=== PATIENT | female | born 1995 | race Caucasian/White ===

== ENCOUNTER 2017-07-01 10:49 | Outpatient (CLI) | payer OTHER ==
[2017-07-01 11:15] VITALS: BP 132/59
[2017-07-01 12:19] LABS: BILIRUBIN,URINE NEGATIVE (NEGATIVE); GLUCOSE, URINE (UA) NEGATIVE (NEGATIVE); KETONES,URINE (UA) NEGATIVE (NEGATIVE); LEUKOCYTE ESTERASE, URINE NEGATIVE (NEGATIVE); NITRITE,URINE NEGATIVE (NEGATIVE); OCCULT BLOOD,URINE NEGATIVE (NEGATIVE); PROTEIN,URINE NEGATIVE (NEGATIVE); UROBILINOGEN,URINE 0.2 (NORMAL) E.U./dL (NORMAL)
[2017-07-01 12:20] LABS: CLARITY,URINE CLEAR (CLEAR)
== END 2017-07-01 11:45 | disposition home or self-care (01) ==
LOC: WFO 10:49 → FBP 10:52 → WFO 11:45
PROVIDERS: ATTEND Obstetrics & Gynecology
DX: Z34.02 Encounter for supervision of normal first pregnancy, second trimester (principal)
CPT/HCPCS: 81001; 81003; 87086; 99212

== ENCOUNTER 2017-08-19 16:09 | Outpatient (CLI) | payer OTHER | END 2017-08-19 16:10 | disposition home or self-care (01) | LOC: LAB.R 16:09 | PROVIDERS: ATTEND Registered Nurse | DX: Z34.83 Encounter for supervision of other normal pregnancy, third trimester (principal); Z11.3 Encounter for screening for infections with a predominantly sexual mode of transmission | CPT/HCPCS: 87491; 87591 ==

== ENCOUNTER 2017-08-22 17:04 | Outpatient (CLI) | payer OTHER ==
[2017-08-22 12:48] LABS: HGB - HEMOGLOBIN 9.8 g/dL (12.0-16.0); MEAN CORPUSCULAR HEMOGLOBIN 29.6 pg (27.0-31.0); MEAN CORPUSCULAR HGB CONC 33.5 g/dL (32.0-36.0); MEAN CORPUSCULAR VOLUME 88.5 fL (81.0-99.0); MEAN PLATELET VOLUME 7.8 fL (7.9-10.8); RED BLOOD COUNT 3.32 10^6/uL (4.20-5.40); WHITE BLOOD COUNT 12.1 x10^3/uL (4.8-10.8)
== END 2017-08-22 17:05 | disposition home or self-care (01) ==
LOC: LAB.N 17:04
PROVIDERS: ATTEND Registered Nurse
DX: Z34.83 Encounter for supervision of other normal pregnancy, third trimester (principal); Z11.3 Encounter for screening for infections with a predominantly sexual mode of transmission
CPT/HCPCS: 36415; 82950; 86850

== ENCOUNTER 2017-09-24 22:13 | Outpatient (CLI) | payer OTHER ==
[2017-09-24 22:33] LABS: BILIRUBIN,URINE NEGATIVE (NEGATIVE); CLARITY,URINE CLEAR (CLEAR); GLUCOSE, URINE (UA) NEGATIVE (NEGATIVE); KETONES,URINE (UA) NEGATIVE (NEGATIVE); LEUKOCYTE ESTERASE, URINE NEGATIVE (NEGATIVE); NITRITE,URINE NEGATIVE (NEGATIVE); OCCULT BLOOD,URINE NEGATIVE (NEGATIVE); PROTEIN,URINE NEGATIVE (NEGATIVE); UROBILINOGEN,URINE 0.2 (NORMAL) E.U./dL (NORMAL)
[2017-09-24 22:36] VITALS: BP 115/59
[2017-09-25] MEDS ORDERED: LACTATED RINGERS 1,000 ML IV SCH (00:45)
== END 2017-09-25 02:06 | disposition home or self-care (01) ==
LOC: WFO 22:13 → FBP 22:15 → WFO 09-25 02:06
PROVIDERS: ATTEND Obstetrics & Gynecology
DX: O47.03 False labor before 37 completed weeks of gestation, third trimester (principal); Z3A.33 33 weeks gestation of pregnancy
CPT/HCPCS: 81003; 82731; 99213; J7120; 81001; 87086

== ENCOUNTER 2017-10-18 08:00 | Outpatient (CLI) | payer OTHER | END 2017-10-18 08:01 | LOC: LAB.R 08:00 | PROVIDERS: ATTEND Registered Nurse | DX: Z34.83 Encounter for supervision of other normal pregnancy, third trimester (principal) | CPT/HCPCS: 87081 ==

== ENCOUNTER 2017-10-21 08:00 | Outpatient (CLI) | payer OTHER ==
[2017-10-21 14:14] LABS: HGB - HEMOGLOBIN 10.8 g/dL (12.0-16.0); MEAN CORPUSCULAR HEMOGLOBIN 29.5 pg (27.0-31.0); MEAN CORPUSCULAR HGB CONC 33.9 g/dL (32.0-36.0); MEAN CORPUSCULAR VOLUME 87.1 fL (81.0-99.0); MEAN PLATELET VOLUME 8.1 fL (7.9-10.8); RED BLOOD COUNT 3.66 10^6/uL (4.20-5.40); RED CELL DISTRIBUTION WIDTH 13.8 % (12.0-15.0); WHITE BLOOD COUNT 11.5 x10^3/uL (4.8-10.8)
== END 2017-10-21 08:01 | disposition home or self-care (01) ==
LOC: LAB.N 08:00
PROVIDERS: ATTEND Registered Nurse
DX: O99.013 Anemia complicating pregnancy, third trimester (principal)
CPT/HCPCS: 36415

== ENCOUNTER 2017-11-04 09:46 | Outpatient (CLI) | payer OTHER ==
[2017-11-04 10:39] LABS: TOTAL PROTEIN,URINE TIMED < 6 mg/dL
[2017-11-04 11:18] LABS: ALBUMIN/GLOBULIN RATIO 0.7 (1.0-2.2); BILIRUBIN,TOTAL 0.3 mg/dL (0.2-1.0); CALCIUM 9.3 mg/dL (8.5-10.3); CREATININE 0.7 mg/dL (0.4-1.0); TOTAL PROTEIN 7.1 g/dL (6.7-8.2); URIC ACID 4.8 mg/dL (2.6-7.2)
== END 2017-11-04 09:47 | disposition home or self-care (01) ==
LOC: LAB 09:46
PROVIDERS: ATTEND Nurse Practitioner Obstetrics & Gynecology
DX: O13.3 Gestational [pregnancy-induced] hypertension without significant proteinuria, third trimester (principal)
CPT/HCPCS: 36415; 80053; 82570; 84156; 84550

== ENCOUNTER 2017-11-15 20:00 | Inpatient (IN) | payer OTHER ==
[~2017-11-15 20:00] MED LIST: DINOPROSTONE 10 MG SUPP VG ONE; SODIUM CHLORIDE FLUSH 0.9% 10 ML SYRINGE IVP PRN
[2017-11-15] MEDS ORDERED: ONDANSETRON 4 MG/2 ML VIAL IVP PRN (20:23)
[2017-11-15] MEDS ORDERED: fentaNYL 100 MCG/2 ML VIAL IVP PRN (20:23)
--- NOTE | 2017-11-15 20:28 | HISTORY & PHYSICAL EXAMINATION ---
Admit History - Instructions [place]/Slash: -Left hand click circles element as positive or present. -Right hand click slashes element as negative or not present. - Visit Reason Visit Reason: Other (preinduction cervical ripening) - : 1 Parity: 0 Premature: 0 Ectopic: 0 : 0 Care: positive: [facility], [facility] Complications This : positive: induced HTN Smoking Status: Never smoker - Mother's Labs GBS: positive: Group B Step Negative Rubella Status: positive: Immune Meds/Allgy - Allergies Allergies/Adverse Reactions: Allergies Allergy/AdvReac Type Severity Reaction Status Date / Time No Known Drug Allergies Allergy Verified 09/24/17 22:54 Review of Systems - Constitutional Constitutional: reports: Fatigue. denies: Fever, Chills - Eyes Eyes: denies: Blurred vision, Spots in vision, Field loss, Vision loss, Dipolpia - Ears, Nose & Throat Ears, Nose & Throat: denies: Vertigo - Cardiovascular Cariovascular: reports: Edema. denies: Irregular heart rate, Palpitations, Chest pain - Respiratory Respiratory: denies: Cough, Sputum production, Wheezing, Snoring, SOB at rest, SOB with exertion - Gastrointestinal Gastrointestinal: denies: Abdominal pain, Constipation, Diarrhea - Musculoskeletal Musculoskeletal: denies: Back pain - Integumentary Integumentary: denies: Rash, Pruritis, Lesions - Neurological Neurological: denies: General weakness, Focal weakness, Headache, Dizziness - Psychiatric Psychiatric: denies: Depression, Anxiety - All Other Systems All Other Systems: reports: Reviewed and negative (occ uterine contractions, no LOF, some bloody show, +FM) Physical - Abdominal Exam Vital Signs: Temp Pulse Resp BP Pulse Ox 36.6 C 92 20 133/74 H 100 11/15/17 20:22 11/15/17 20:22 11/15/17 20:22 11/15/17 20:22 11/15/17 20:22 Contraction Frequency (min/apart): erratic Contraction Intensity: positive: Mild to moderate Uterine Resting Tone: positive: Soft - Monitoring Heart Rate Baseline: 145 Strip Review: positive: Category I - Presentation Presentation: positive: Vertex - Vaginal Exam Membranes: positive: Membranes intact Dilation (in cm): 2 Effacement (%): 75 Station: positive: -1 Cervical Position: positive: Midposition - Speculum Exam Speculum Exam Performed: positive: No Findings: negative: Gross leak - Other Notes Labor Progress Note/Additional Text: Gilda Go is a 22 y/o @ 40w2d by first trimester US who presents for preinduction cervical ripening secondary to gestational HTN w/o evidence of PET. She presented to the clinic today w/ persistently elevated BPs in the 140s /90s. We discussed options for management & the recommendation for induction of labor as well as rationale. We reviewed risks/benefits/alternatives, full PARQ was held & informed consent obtained. She will undergo prostaglandin preinduction cervical ripening prior to initiation of IOL. We reviewed options for preinduction cervical ripening & she elected overnight dinoprostone. Her has been complicated only by an episode of threatened labor in the early third trimester, which did not progress. Her labs are all WNL & she screened negative for GBS. Her is presently deployed. PMH: unremarkable Psurgh: none GYNhx: denies STI hx, no abnormal pap OBhx: primiparous Famhx: non-contributory Sochx: unemployed, to Neal, denies DV; Neal is presently stationed in [facility] ; her parents are present for support; denies ETOH/tobacco/drugs PE: GEN: AAox3, NAD WA gravid female HEENT: grossly normocephalic, atraumatic LUNGS: CTA b/l t/o HEART: RRR nls1s2, no murmur GI: Abd gravid, NT; lie longitudinal, presentation cephalic, EFW 7- 7.5# : No lesion, some vaginal bloody show OB: EFM: BL 145bpm, + accels, no decels, mod angela MS: +3 pitting edema to the inferior thigh B/L, FROM, no erythema, no deformity NEURO: +3 DTRs, no clonus; no focal deficit SKIN: C/D/I; warm, well-perfused, no lesion PSYCH: Normal mood & affect, pleasantly conversant Plan for Labor - Plan For Labor I expect patient to be DC'd or transferred within 96 hours.: Yes Plan for Labor: 1. Admit to obs for cervical ripening 2. dinoprostone 10mg insert PV 3. PET labs w/ admit labs 4. analgesia/anesthesia PRN pt request 5. hydroxyzine 50mg IM x1 PRN insomnia 6. Careful BP monitoring w/ antihypertensive therapy for severe-range BPs 7. Reassess cervical status x12 hours, earlier PRN 8. Reviewed plan of care w/ pt & RN @ bedside; Reviewed clinical scenario w/ Dr. Jazmin MD, back-up [employer]INCIPAL; all in agreement, without concerns.
[2017-11-15 21:26] LABS: BASOPHILS % (AUTO) 0.1 %; EOSINOPHILS # (AUTO) 0.1 10^3/uL (0.0-0.7); EOSINOPHILS % (AUTO) 0.5 %; HGB - HEMOGLOBIN 10.3 g/dL (12.0-16.0); LYMPHOCYTES # (AUTO) 1.7 10^3/uL (1.5-3.5); LYMPHOCYTES % (AUTO) 12.2 %; MEAN CORPUSCULAR HGB CONC 33.4 g/dL (32.0-36.0); MEAN CORPUSCULAR VOLUME 86.9 fL (81.0-99.0); MEAN PLATELET VOLUME 8.5 fL (7.9-10.8); MONOCYTES # (AUTO) 0.8 10^3/uL (0.0-1.0); MONOCYTES % (AUTO) 5.9 %; NEUTROPHILS # (AUTO) 11.3 10^3/uL (1.5-6.6); NEUTROPHILS % (AUTO) 81.3 %; PLT - PLATELET COUNT 232 10^3/uL (130-450); RED BLOOD COUNT 3.56 10^6/uL (4.20-5.40); RED CELL DISTRIBUTION WIDTH 14.2 % (12.0-15.0); WHITE BLOOD COUNT 13.9 x10^3/uL (4.8-10.8)
[2017-11-15 21:57] LABS: ALBUMIN 2.7 g/dL (3.2-5.5); ALBUMIN/GLOBULIN RATIO 0.8 (1.0-2.2); BILIRUBIN,TOTAL 0.5 mg/dL (0.2-1.0); CALCIUM 8.6 mg/dL (8.5-10.3); CREATININE 0.7 mg/dL (0.4-1.0); TOTAL PROTEIN 6.3 g/dL (6.7-8.2)
--- NOTE | 2017-11-16 11:27 | PROVIDER PROGRESS NOTE ---
Labor Progress Note - Uterine Monitoring Uterine Monitoring Mode: positive: External toco Contraction Frequency (min/apart): 4-6 Contraction Intensity: positive: Mild to moderate Uterine Resting Tone: positive: Soft - Monitoring Monitor Mode: positive: External ultrasound Heart Rate Baseline: 130 Heart Rate Variability: positive: Moderate (6-25 bmp) Accelerations: positive: Present, 15x15 Decelerations: positive: None Strip Review: positive: Category I - Vaginal Exam Dilation (in cm): 2 Effacement (%): 70 Station: -1 (per RN) Cervical Position: Midposition - Labor Progress Note Labor Progress Note/Additional Text: S: Gilda is 12 hours s/p dinoprostone insertion. She is comfortable & without complaint. She is presently normotensive. She would like to utilize RazorGator tub & ambulate some today. She denies WATT/vision changes/abd pain. O: VSS: BP 126/72 EFM: BL 130bpm, + accels, no decels, mod angela TOCO: UCs q 4-6 min x60 seconds, palp mod SVE:Per Rn evaluation, no cervical change s/p PGE1 insert. A: 22 y/o @ 40w3d by early first trimester US IOL for gHTN/progressive edema, presently normotensive w/o s/sx PET, no severe- range BPs GBS neg, IBOW FHTs cat I Preinduction cervical ripening, no cervical change w/ PGE1 placement x12 hours; Beverly's score: 6 Adequate pain control w/o analgesia/anesthesia P: 1. Buccal misoprostol 50mcg q 4 hrs. 2. Ongoing careful monitoring of BP & s/sx PET w/ intervention as clinically warranted. 3. Reassess cervical status x4 hours, earlier PRN 4. Begin Pitocin infusion once cervix favorable 5. Analgesia/anesthesia PRN per pt request
[2017-11-16] MEDS: SODIUM CHLORIDE FLUSH 0.9% 10 ML SYRINGE IVP SCH (12:20)
[2017-11-16] MEDS: miSOPROStol 100 MCG TABLET BC SCH ×3 (12:31→20:35)
[2017-11-16] MEDS: LACTATED RINGERS 1,000 ML IV SCH (18:16)
[2017-11-17] MEDS: SODIUM CHLORIDE FLUSH 0.9% 10 ML SYRINGE IVP SCH (00:31)
[2017-11-17] MEDS: LACTATED RINGERS 1,000 ML IV SCH ×2 (01:15→06:50)
[2017-11-17] MEDS ORDERED: fent/BUPIV 2 MCG/0.125% 250 ML EP ONE (01:38)
[2017-11-17] MEDS ORDERED: ePHEDrine 50 MG/ML VIAL IVP PRN (02:44)
[2017-11-17] MEDS ORDERED: fent/BUPIV 2 MCG/0.125% 250 ML EP PRN (02:44)
[2017-11-17] MEDS ORDERED: ONDANSETRON 4 MG/2 ML VIAL IVP PRN (02:44)
[2017-11-17] MEDS ORDERED: LACTATED RINGERS 500 ML IV ONE (02:44)
[2017-11-17] MEDS ORDERED: METOCLOPRAMIDE 10 MG/2 ML VIAL IVP PRN (02:44)
[2017-11-17] MEDS ORDERED: diphenhydrAMINE INJ 50 MG/ML VIAL IVP PRN (02:44)
[2017-11-17] MEDS ORDERED: NALBUPHINE 10 MG/ML AMP IVP PRN (02:44)
[2017-11-17] MEDS ORDERED: NALOXONE 0.4 MG/ML VIAL IVP PRN (02:44)
[2017-11-17] MEDS ORDERED: OXYTOCIN/SODIUM CHLORIDE 500 ML IV SCH (06:42)
[2017-11-17] MEDS ORDERED: OXYTOCIN/SODIUM CHLORIDE 500 ML IV ONE (06:55)
--- NOTE | 2017-11-17 09:26 | PROVIDER PROGRESS NOTE ---
Labor Progress Note - Uterine Monitoring Uterine Monitoring Mode: positive: External toco Contraction Frequency (min/apart): 2-4 Contraction Intensity: positive: Moderate Uterine Resting Tone: positive: Soft - Monitoring Monitor Mode: positive: External ultrasound Heart Rate Baseline: 125 Heart Rate Variability: positive: Moderate (6-25 bmp) Accelerations: positive: Present, 15x15 Decelerations: positive: Variable (non-repetitive to yojana in 110s w/ spontaneous return to baseline <60 seconds) Strip Review: positive: Category II - Vaginal Exam Dilation (in cm): 5 Effacement (%): 80 Station: -1 Cervical Position: Anterior (soft) - Labor Progress Note Labor Progress Note/Additional Text: S: Gilda is comfortable w/ her epidural in place. Her parents & their foster children are present @ the bedside & are supportive. She has been intermittently videochatting w/ Neal. O: VSS: BP: 130/80 EFM: BL 125bpm, + accels, occ angela decels to yojana in 110s w/ spontaneous return to baseline <60 seconds, mod angela TOCO: UCs q2-4 min x60 seconds w/ 3mU/min Pitocin infusing SVE: 5/80/-1 BBOW AROM for thick MSAF A: 22 y/o @ 40w4d, induction of labor for GHTN w/o s/sx PET Normotensive @ present, no severe-range BPs, no neuro s/sx FHTs cat II, overall reassuring MSAF s/p effective prostaglandin cervical ripening over a period of ~36 hours; cervix now favorable Adequate pain control w/ epidural anesthesia P: 1. Continue to titrate Pitocin infusion per protocol to maintain adequate labor pattern by tocometry 2. Reassess cervical status x4 hours, earlier PRN 3. Plan peds attendance @ delivery 4. Reviewed optimal maternal positioning to facilitate rotation & descent 5. Reviewed plan of care w/ pt, family & RN @ bedside; all in agreement, without concerns 6. Repeat PET labs
[2017-11-17 10:04] LABS: HGB - HEMOGLOBIN 10.8 g/dL (12.0-16.0); MEAN CORPUSCULAR HEMOGLOBIN 29.3 pg (27.0-31.0); MEAN CORPUSCULAR HGB CONC 33.7 g/dL (32.0-36.0); MEAN CORPUSCULAR VOLUME 86.9 fL (81.0-99.0); MEAN PLATELET VOLUME 8.2 fL (7.9-10.8); RED BLOOD COUNT 3.67 10^6/uL (4.20-5.40); RED CELL DISTRIBUTION WIDTH 14.4 % (12.0-15.0); WHITE BLOOD COUNT 12.2 x10^3/uL (4.8-10.8)
[2017-11-17 10:22] LABS: ALBUMIN 2.6 g/dL (3.2-5.5); ALBUMIN/GLOBULIN RATIO 0.7 (1.0-2.2); BILIRUBIN,TOTAL 0.5 mg/dL (0.2-1.0); CALCIUM 8.7 mg/dL (8.5-10.3); CREATININE 0.8 mg/dL (0.4-1.0); TOTAL PROTEIN 6.4 g/dL (6.7-8.2)
--- NOTE | 2017-11-17 13:11 | PROVIDER PROGRESS NOTE ---
Labor Progress Note - Uterine Monitoring Uterine Monitoring Mode: positive: External toco : 2-4 Contraction Intensity: positive: Moderate to strong Uterine Resting Tone: positive: Soft - Monitoring Monitor Mode: positive: External ultrasound Heart Rate Baseline: 130 Heart Rate Variability: positive: Moderate (6-25 bmp) Accelerations: positive: Present, 15x15 Decelerations: positive: Variable (to yojana in 110s w/ spontaneous return to baseline <60 seconds, non-repetitive) Strip Review: positive: Category II - Vaginal Exam Dilation (in cm): 10 Effacement (%): 100 Station: 1 - Labor Progress Note Labor Progress Note/Additional Text: S: Gilda reports sensation of constant pressure, worse during contractions, has the urge to push. Family @ bedside, supportive. O: VSS: T 36.9, BP: 115/65 EFM: BL 130bpm, + accels, occ angela decels to yojana in 110s w/ spontaneous return to baseline <60 seconds; mod angela TOCO: UCs q 2-4 min w/ 3mU/min Pitocin infusing SVE: /1, ongoing leakage of MSAF A: 22 y/o @ 40w4d, IOL for GHTN w/o s/sx PET GBS negative, afebrile AROM x4 hours for thick MSAF FHTs cat II, overall reassuring Adequate pain control w/ epidural anesthesia Progressive cervical change w/ titration of Pitocin s/p effective prostaglandin cervical ripening, now 2nd stage labor P: 1. Begin pushing 2. Peds to attend delivery secondary to thick MSAF 3. Reviewed anticipatory guidance re: 2nd/3rd stage labor, plan [facility]
[2017-11-17] MEDS ORDERED: LIDOCAINE 1% 50 ML MDV ONE (13:19)
--- NOTE | 2017-11-17 14:02 | DELIVERY NOTE ---
Delivery Note - Labor Labor: positive: Augmented by ARM, Induced by oxytocin - Delivery Method Infant Delivery Method: positive: Spontaneous vaginal delivery - Presentation Presentation: positive: Compound (L hand), SULEMA - left occiput anterior - Nuchal Cord Nuchal Cord: positive: Present (tight x1, baby somersaulted through s/p delivery of shoulders/body) - Anesthetic Anesthetic Type: - Amniotic Fluid Description Amniotic Fluid Description: positive: Thick meconium - Episiotomy Type Episiotomy Type: positive: None - Laceration Laceration: positive: Vaginal (1st degree, shallow) - Suture Suture Type: positive: Vicryl Suture Size: positive: 3-0 - Delivery Outcome Delivery Outcome: positive: Livebirth - [place]: positive: Placed in direct skin contact with mother, Suctioned, Bulb syringe, Stimulated, [place] used, Warmer used sex: positive: Female - Cord Cord: positive: 3 vessels - Placenta Placenta: positive: Intact, Spontaneous, Meconium stained - Estimated Blood Loss Estimated Blood Loss (in cc): 200 - Post Delivery Events Post Delivery Events: positive: No post delivery events - Delivery Comments (Free Text/Narrative) Delivery Comments (Free Text/Narrative): VALERIE CORONA IS A 22 Y/O WHO UNDERWENT PREINDUCTION CERVICAL RIPENING W/ DINOPROSTONE & MISOPROSTOL SECONDARY TO GHTN W/O S/SX PET; SHE HAD NO SEVERE- RANGE BPS DURING THE COURSE OF HER CERVICAL RIPENING. SHE RECEIVED AN EPIDURAL FOR ANESTHESIA & THEN UNDERWENT PITOCIN INFUSION TO A MAXIMUM INFUSION RATE OF 4MU/MIN TITRATED OVER A PERIOD OF 6 HOURS. SHE UNDERWENT AROM FOR THICK MSAF & PROGRESSED STEADILY TO COMPLETE DILATATION W/ AN URGE TO PUSH @ 1308, FOR A TOTAL FIRST STAGE DURATION OF 4 HOURS, 8 MINUTES. FHTS MONITORED EXTERNALLY ELECTRONICALLY T/O FIRST STAGE & CAT I-II, CONSISTENTLY REASSURING. PT PUSHED W / DIRECTION & SPONTANEOUS URGE TO EFFECT OF VIABLE FEMALE IN SULEMA POSITION W / COMPOUND L HAND OVER AN INTACT PERINEUM @ 1336, FOR A TOTAL 2ND STAGE DURATION OF 28 MINUTES W/ 19 MINUTES OF ACTIVE EXPULSIVE EFFORT; TIGHT NUCHAL X1 NOT REDUCIBLE; INFANT SOMERSAULTED THROUGH CORD S/P DELIVERY OF SHOULDERS/ BODY. INITIALLY STUNNED, LIMP, MECONIUM-STAINED. PLACED TO MATERNAL ABD FOR DRYING, THEN CORD CLAMPED X2 & CUT BY CNM W/IN SECONDS OF DELIVERY & INFANT TO WARMER TO WAITING NEURODIAGNOSTIC TECHNICIAN. APGARS 7/7/9. ACTIVE MANAGEMENT OF THIRD STAGE OF LABOR W/ PITOCIN IN IV FLUIDS; PLACENTA DELIVERED SPONTANEOUSLY & INTACT, ACUNA, VERY MECONIUM-STAINED, @ 1339, FOR A TOTAL 3RD STAGE DURATION OF 3 MINUTES. FF @ U. VAGINA & PERINEUM INSPECTED & SHALLOW VAGINAL LACERATION NOTED; REPAIRED UNDER EPIDURAL ANESTHESIA W/ 3-0 VICRYL. HEMOSTATIC. EBL 200ML. MOTHER & INFANT PRESENTLY STABLE. PLANS TO BREASTFEED. WEIGHT & CORD GAS RESULTS PENDING.
[2017-11-17] MEDS ORDERED: HYDROCORTISONE/PRAMOXINE 10 GM PR PRN (16:25)
[2017-11-17] MEDS ORDERED: OXYTOCIN/SODIUM CHLORIDE 250 ML IV ONE (16:25)
[2017-11-17] MEDS ORDERED: LACTATED RINGERS 1,000 ML IV SCH (17:00)
[2017-11-17] MEDS: ACETAMINOPHEN 500 MG TABLET PO SCH (19:05)
[2017-11-17] MEDS: IBUPROFEN 800 MG TABLET PO SCH (19:05)
--- NOTE | 2017-11-17 21:06 | ANESTHESIA POST OP EVALUATION ---
Anesthesia Post Eval - Post Anesthesia Eval CV Function Including HR & BP: positive: Stable Pain Control: positive: Adequate Nausea & Vomiting: positive: Negative Mental Status: positive: Appropriate Anesthesia Complications: positive: None (Patient recieved labor epidural, uneventful. I explained to notify us if she developed a spinal headache or any other neurologic problems. I also told he that she may have some low back discomfort that may persist for a week or two following epidural. Overall she was satisfied with her epidural and pain management. Thank you, Paris
[2017-11-17] MEDS: DOCUSATE SODIUM 100 MG CAPSULE PO SCH (21:30)
[2017-11-18] MEDS: IBUPROFEN 800 MG TABLET PO SCH ×4 (00:58→19:45)
[2017-11-18] MEDS: ACETAMINOPHEN 500 MG TABLET PO SCH ×3 (02:55→19:44)
--- NOTE | 2017-11-18 08:35 | PROVIDER PROGRESS NOTE ---
Subjective - Subjective Subjective: S: Bonding well with baby. without difficulty. Pain well controlled with Ibuprofen and Tylenol. Bleeding decreasing and is without clots. Reports some back discomfort at epidural site. Perineum sore but manageable. O: Hgb 10.3-->10.8; PLT 232-->203; AST 25 -->20; ALT 15 -->13; LDH 128 BP 119/61, T 36.6, HR 61, O2 98 Heart RRR w/o M/G/R, lungs CTAB, abdomen soft and nontender with fundus firm at U. Light lochia rubra. Perineum intact with mild edema. Bilateral LE's 2+ edema - improved. A: 22yo -->P1 s/p TSVD of viable female GHTN - normotensive P: Continue routine pp care and medications. Plan discharge home tomorrow. Objective - Vital Signs/Intake & Output Vital Signs: Vital Signs x48h Temp Pulse Resp BP Pulse Ox 11/18/17 04:45 36.6 C 61 16 119/61 98 Intake & Output: Intake & Output 11/15/17 11/16/17 11/17/17 11/18/17 23:59 23:59 23:59 23:59 Intake Total 1999 1243.101 Output Total 1000 1800 Balance 1000 -556.899 - Lab Results Fish Bones: 11/17/17 10:00 11/17/17 10:00 Other Labs: Lab Results x24hrs 11/17/17 11/17/17 Range/Units 10:00 10:00 WBC 12.2 H (4.8-10.8) x10^3/uL RBC 3.67 L (4.20-5.40) 10^6/uL Hgb 10.8 L (12.0-16.0) g/dL Hct 31.9 L (37.0-47.0) % MCV 86.9 (81.0-99.0) fL MCH 29.3 (27.0-31.0) pg MCHC 33.7 (32.0-36.0) g/dL RDW 14.4 (12.0-15.0) % Plt Count 203 (130-450) 10^3/uL MPV 8.2 (7.9-10.8) fL Sodium 135 (135-145) mmol/L Potassium 4.0 (3.5-5.0) mmol/L Chloride 107 (101-111) mmol/L Carbon Dioxide 22 (21-32) mmol/L Anion Gap 6.0 (6-13) BUN 15 (6-20) mg/dL Creatinine 0.8 (0.4-1.0) mg/dL Estimated GFR (MDRD) 90 (>89) Glucose 88 (70-100) mg/dL Calcium 8.7 (8.5-10.3) mg/dL Total Bilirubin 0.5 (0.2-1.0) mg/dL AST 20 (10-42) IU/L ALT 13 (10-60) IU/L Alkaline Phosphatase 111 (42-121) IU/L Total Protein 6.4 L (6.7-8.2) g/dL Albumin 2.6 L (3.2-5.5) g/dL Globulin 3.8 (2.1-4.2) g/dL Albumin/Globulin Ratio 0.7 L (1.0-2.2)
[2017-11-18] MEDS ORDERED: WITCH HAZEL/GLYCERIN 1 EACH MED..PAD TOP PRN (08:36)
[2017-11-18] MEDS: DOCUSATE SODIUM 100 MG CAPSULE PO SCH ×2 (10:54→21:23)
[2017-11-19] MEDS: IBUPROFEN 800 MG TABLET PO SCH ×3 (01:47→14:29)
[2017-11-19] MEDS: ACETAMINOPHEN 500 MG TABLET PO SCH ×2 (03:47→11:49)
[2017-11-19] MEDS: DOCUSATE SODIUM 100 MG CAPSULE PO SCH (08:04)
[2017-11-19 08:13] VITALS: BP 120/73
--- NOTE | 2017-11-19 10:31 | Discharge Plan ---
Discharge Plan Disposition: 01 Home, Self Care Condition: Good Diet: Regular Activity Restrictions: No Restrictions Shower Restrictions: No Driving Restrictions: No Weight Bearing: Full Weight No Smoking: If you smoke, Please STOP! Call for help. Follow-up with: Eneida Owusu CNM, ARNP [Provider Admit Priv/Credential] -
--- NOTE | 2017-11-19 10:37 | PROVIDER PROGRESS NOTE ---
Subjective - Subjective Subjective: Final Progress Note S: Bonding well with baby. without difficulty. Pain well controlled with ibuprofen and tylenol. Perineum comfortable. Back pain decreased with use of K-pad overnight. Bleeding decreased and is light. O: BP 120/73, T 36.6, HR55, RR 14 Heart RRR w/o M/G/R, lungs CTAB. Abdomen soft and nontender with fundus firm at U-1. Bilateral LE's 1+ edema. Light lochia rubra. Perineum intact. A: 22yo -->P1 PPD#2, s/p TSVD of viable female GHTN - normotensive, labs WNL P: Discharge home today. Reviewed self care and warning signs. Will have 1 week visit with myself at [facility]. She is planning to leave to go back to [place] with her parents in 1 week and will be gone for a least 6 weeks. She plans to f/u with myself at [facility] when she returns from [place]. Denies contraception. Advised OTC PO Ibuprofen 600mg PO q 6 hours PRN pain; 100mg Colace PO q 4 hours PRN constipation; Continuation of PNV while . Pt verbalized understanding and agrees to above plan. She denies further questions or concerns today. Objective - Vital Signs/Intake & Output Vital Signs: Vital Signs x48h Temp Pulse Resp BP Pulse Ox 11/19/17 08:10 36.6 C 55 L 14 120/73 99 11/19/17 04:21 36.5 C 63 16 125/77 100 Intake & Output: Intake & Output 11/16/17 11/17/17 11/18/17 11/19/17 23:59 23:59 23:59 23:59 Intake Total 1999 1243.101 250 Output Total 1000 1800 1 Balance 1000 -556.899 249 - Lab Results Fish Bones: 11/17/17 10:00 11/17/17 10:00
--- NOTE | 2017-11-19 18:24 | Labor Flowsheet ---
Labor Flowsheet Datetime Report Generated by CPN: 11/19/2017 18:24 Datetime: 11/19/2017 14:56 VITAL SIGNS NBP Sys/Evelina/Mean (mmHg): 121 : 75 : 86 Pulse: 65 LaborFlag: Labor Datetime: 11/17/2017 20:14 SpO2 (%): 99 Datetime: 11/17/2017 13:35 UTERINE ACTIVITY Monitor Mode: External Frequency (min): 2 Quality: Strong Duration (sec): 40-60 Pattern: Normal: <= 5 Contractions in 10 Minutes Resting Tone (Palpate): Relaxed FHR Baseline Rate : 125 Variability: Minimal - Undetectable to <=5 bpm Comments: mother switched to efm form telemetry, FHR 125 up to pushing. fhr during pushing FHT 60s- 130s. right before delivery FHT remaind in the 60s. 1336 Oxygen Amount (LPM): 10 Oxygen Method: Non-Rebreather STAGE 2 Pushing: Urge to Push Pushing Position: Pushing with Contractions Pushing Progress: Descent with Pushing Stage 2 Comments: 1316 started pushing Datetime: 11/17/2017 13:14 Stage of : Labor ASSESSMENT A Monitor Mode: Telemetry Accelerations: None Provider Reviewed Strip: Yes Strip Reviewed by: emeka kenny COMMUNICATION Communication: Provider at Bedside Notification Reason: Labor Status; Pain Communication Comments: emeka at bedside. anterior lip. RT and peds notified for attendence of bi rth Datetime: 11/17/2017 13:03 VAGINAL EXAM Dilatation (cm): 9.5 Effacement (%): 100 Station: 2 Exam by: emeka kenny cnm Datetime: 11/17/2017 12:59 Contraction Comments: pt feeling strong urge to push. FHR Baseline Changes: No Baseline Change Decelerations: None Category: Category II Datetime: 11/17/2017 12:32 Epidural Procedure Other: Single Dose Datetime: 11/17/2017 12:29 Anesthesia Comments: 5cc bolus given for increased presure Datetime: 11/17/2017 12:18 Vaginal Bleeding: Normal Show Cervix, Consistency: Soft Cervix, Position: Anterior PATIENT CARE IV/Blood Work: IV Infusing per Order Datetime: 11/17/2017 12:10 Temperature (C): 36.9 Datetime: 11/17/2017 12:01 Actions for Decelerations: IV Bolus Patient Position/Activity: Left Extreme Datetime: 11/17/2017 11:49 Patient Care Comments: juice given Datetime: 11/17/2017 11:02 Respirations: 15 Vaginal Exam Comments: pt feeling pressure in between ctx Datetime: 11/17/2017 10:17 MEDICATIONS Pitocin (milliunits): Increased to @ 4 Datetime: 11/17/2017 10:01 PAIN Pain Scale: 0 Pain Assessment Comments: some perineum pressure Hygiene: Martina Care; Peripad Changed Datetime: 11/17/2017 09:12 Membrane Status: Ruptured Membranes Rupture Method: Artificial Amniotic Fluid Color: Heavy Meconium Amniotic Fluid Amount: Moderate Datetime: 11/17/2017 08:15 Pitocin Checklist: No More than 5 Uterine Contractions in 10 Minutes for any 20 Minute Interval Datetime: 11/17/2017 07:00 Anesthesia Level Check: T9 Datetime: 11/17/2017 06:53 I/O Interventions: Mckay Cath Inserted Datetime: 11/17/2017 06:42 Provider Notified (Name): M Milagrosa, CNM, SCHOOL SUPERVISOR Datetime: 11/17/2017 03:16 Monitor Interventions for FHR: Ultrasound Adjusted Datetime: 11/17/2017 03:07 Monitor Interventions for UA: [place] Adjusted Datetime: 11/17/2017 02:10 Epidural Procedure: Completed Datetime: 11/17/2017 01:34 PROCEDURE TIME OUT Procedure Verify: Correct Patient Identity; Correct Side and Site are Marked; Accurate Procedure Co nsent Form; Agreement on Procedure to be Done; Correct Patient Position ANESTHESIA Anesthesia Plans: Epidural Epidural Positioning: Sitting Datetime: 11/16/2017 22:58 Pain Presence: Intermittent Pain Type: Cramping; Dull Pain Location: Abdomen; Back Pain Relief Measures: Comfort Measures Pain Coping: Breathing Through Contractions Comfort Measures: Breathing/Relaxation; Back Rub Given; Family Support; Aromatherapy Datetime: 11/16/2017 20:35 Cervical Ripening Agents: Cytotec @ 50 Datetime: 11/16/2017 19:36 MATERNAL ASSESSMENT Level of Consciousness: Fully Conscious DTR's/Clonus: DTRs 2+; No Clonus Headache: Denies Breath Sounds, Left: Clear and Equal Breath Sounds, Right: Clear and Equal Nausea/Vomiting: Denies RUQ Epigastric Pain: Denies Datetime: 11/15/2017 21:39 Temperature Route: Oral Datetime: 11/15/2017 21:30 Medication Comments: Cervidil placed
--- NOTE | 2017-12-01 11:42 | DISCHARGE SUMMARY ---
Physician: YANET Adams DATE OF ADMISSION: 11/17/2017 DATE OF DISCHARGE: 11/19/2017 DIAGNOSES ON ADMISSION 1. A 22-year-old G1, P0 at 40 weeks 2 days intrauterine . 2. Preinduction cervical ripening secondary to gestational hypertension without evidence of preeclampsia. 3. Gestational hypertension without preeclampsia. DIAGNOSES ON DISCHARGE 1. A 22-year-old G1, P1, status post spontaneous vaginal delivery on 11/17/2017. 2. Normal recovery. BRIEF HISTORY: She is a patient of [facility] who presented on 11/15/2017 for preinduction cervical ripening. The patient was noted to have persistently elevated blood pressures in the 140s/90s. She received overnight Cervidil. She then continued preinduction cervical ripening with misoprostol. She had no severe range blood pressures during the course of her cervical ripening. She received an epidural for anesthesia and then underwent Pitocin infusion for induction of labor. She spontaneously delivered a viable female infant. Apgars were 7, 7, and 9 at 1, 5 and 10 minutes respectively. EBL 200 mL. Patient was noted to have a shallow vaginal laceration, which was repaired with a 3-0 Vicryl in the usual fashion under sterile conditions. She has been doing well in her course. She is ambulating and tolerating a regular diet. She is urinating without difficulty and her lochia is normal. Her pain is well controlled with oral medications. She will be discharged home today on postoperative day 2. She intends to followup with myself at [facility] in 1 week for a visit, followed by a 3-week routine visit. She has been given precautions to call if she has any worsening fevers, chills, abdominal pain, increased bleeding or foul smelling vaginal lochia. TD: 11/30/2017 13:46
== END 2017-11-19 18:18 | disposition home or self-care (01) | DRG 775 ==
LOC: WFO 20:00 → FBP 20:04 → WFO 20:15 → FBP 20:16 → OBSVTOIN 11-17 06:42
PROVIDERS: ADMIT Registered Nurse; ATTEND Registered Nurse
PROC: 10E0XZZ Delivery of Products of Conception, External Approach (ICD-10-PCS; principal; 2017-11-17)
PROC: 0HQ9XZZ Repair Perineum Skin, External Approach (ICD-10-PCS; 2017-11-17)
PROC: 10907ZC Drainage of Amniotic Fluid, Therapeutic from Products of Conception, Via Natural or Artificial Opening (ICD-10-PCS; 2017-11-17)
DX: O13.4 Gestational [pregnancy-induced] hypertension without significant proteinuria, complicating childbirth (principal); O77.0 Labor and delivery complicated by meconium in amniotic fluid; O69.1XX0 Labor and delivery complicated by cord around neck, with compression, not applicable or unspecified; O32.6XX0 Maternal care for compound presentation, not applicable or unspecified; O70.0 First degree perineal laceration during delivery; Z3A.40 40 weeks gestation of pregnancy; Z37.0 Single live birth
CPT/HCPCS: 36415; 59200; 80053; 83615; 84156; 85025; 85027; 96360; 96361